=== PATIENT | female | born 1935 | race Caucasian/White ===

== ENCOUNTER 2017-06-18 20:50 | Emergency (ER) | payer OTHER ==
[2017-06-18 21:53] LABS: ADD MAN DIFF? NO
[2017-06-18 22:00] LABS: WHITE BLOOD COUNT 6.7 10^3/ul (4.8-10.8)
[2017-06-18 22:00] LABS: BASOPHILS % 0.6 % (0.0-2.0); EOSINOPHILS # 0.1 10^3/ul (0.0-0.5); EOSINOPHILS % 0.9 % (0.0-7.0); HEMATOCRIT 35.7 % (37.0-47.0); HEMOGLOBIN 12.2 g/dl (12.0-16.0); LYMPHOCYTES # 1.5 10^3/ul (0.8-2.9); LYMPHOCYTES % 21.9 % (15.0-51.0); MEAN CORPUSCULAR HEMOGLOBIN 27.6 pg (29.0-33.0); MEAN CORPUSCULAR HGB CONC 34.2 g/dl (32.0-37.0); MEAN CORPUSCULAR VOLUME 80.8 fl (82.0-101.0); MEAN PLATELET VOLUME 10.4 fl (7.4-10.4); MONOCYTE # 0.7 10^3/ul (0.3-0.9); MONOCYTES % 9.9 % (0.0-11.0); NEUTROPHIL # 4.5 10^3/ul (1.6-7.5); NEUTROPHILS % 66.6 % (39.0-77.0); PLATELET COUNT 247 10^3/UL (140-415); RED BLOOD COUNT 4.42 10^6/ul (4.20-5.40); RED CELL DISTRIBUTION WIDTH 13.5 % (11.5-14.5)
[2017-06-18 22:20] LABS: ALANINE AMINOTRANSFERASE 32 IU/L (13-69); ALBUMIN 2.9 g/dl (3.3-4.9); ALBUMIN/GLOBULIN RATIO 1.07; ALKALINE PHOSPHATASE 150 IU/L (42-121); ANION GAP 17 (8-16); ASPARTATE AMINO TRANSFERASE 30 IU/L (15-46); BILIRUBIN,INDIRECT 0.3 mg/dl (0-1.1); BILIRUBIN,TOTAL 0.3 mg/dl (0.2-1.3); BLOOD UREA NITROGEN 35 mg/dl (7-20); CALCIUM 7.9 mg/dl (8.4-10.2); CARBON DIOXIDE 17 mmol/L (21-31); CHLORIDE 106 mmol/L (97-110); CREATININE 0.91 mg/dl (0.44-1.00); GLUCOSE 318 mg/dl (70-220); LIPASE 297 U/L (23-300); POTASSIUM 4.1 mmol/L (3.5-5.1); SODIUM 136 mmol/L (135-144); TOTAL PROTEIN 5.6 g/dl (6.1-8.1)
[2017-06-18 22:31] LABS: TROPONIN-I < 0.012 ng/ml (0.00-0.12)
[2017-06-18] MEDS: SOD CHLORIDE 0.9% 1,000 ML IV (22:55)
[2017-06-18] MEDS: LORAZEPAM 0.5 MG TAB PO (23:13)
[2017-06-19 01:44] LABS: TROPONIN-I < 0.012 ng/ml (0.00-0.12)
== END 2017-06-19 09:18 | disposition home or self-care (01) ==
LOC: E/R 06-19 09:18
DX: R07.9 Chest pain, unspecified (principal); R06.02 Shortness of breath; F41.9 Anxiety disorder, unspecified; I10 Essential (primary) hypertension; E11.9 Type 2 diabetes mellitus without complications; Z79.4 Long term (current) use of insulin; Z79.82 Long term (current) use of aspirin
CPT/HCPCS: 36415; 71045; 80053; 83690; 84484; 85025; 93005; 99285-25

== ENCOUNTER → 2017-10-10 | Emergency (ER) | payer OTHER ==
[2017-10-10 20:22] LABS: ADD MAN DIFF? NO
[2017-10-10 20:24] LABS: BASOPHILS % 0.6 % (0.0-2.0); EOSINOPHILS # 0.1 10^3/ul (0.0-0.5); EOSINOPHILS % 2.2 % (0.0-7.0); HEMATOCRIT 37.8 % (37.0-47.0); HEMOGLOBIN 12.7 g/dl (12.0-16.0); LYMPHOCYTES # 1.4 10^3/ul (0.8-2.9); LYMPHOCYTES % 21.8 % (15.0-51.0); MEAN CORPUSCULAR HEMOGLOBIN 26.9 pg (29.0-33.0); MEAN CORPUSCULAR HGB CONC 33.6 g/dl (32.0-37.0); MEAN CORPUSCULAR VOLUME 80.1 fl (82.0-101.0); MEAN PLATELET VOLUME 9.7 fl (7.4-10.4); MONOCYTE # 0.7 10^3/ul (0.3-0.9); NEUTROPHIL # 4.2 10^3/ul (1.6-7.5); NEUTROPHILS % 64.1 % (39.0-77.0); PLATELET COUNT 260 10^3/UL (140-415); RED BLOOD COUNT 4.72 10^6/ul (4.20-5.40); RED CELL DISTRIBUTION WIDTH 13.2 % (11.5-14.5)
[2017-10-10 20:24] LABS: WHITE BLOOD COUNT 6.5 10^3/ul (4.8-10.8)
[2017-10-10 20:33] LABS: ANION GAP 16 (8-16); BLOOD UREA NITROGEN 32 mg/dl (7-20); CALCIUM 9.4 mg/dl (8.4-10.2); CARBON DIOXIDE 20 mmol/L (21-31); CHLORIDE 103 mmol/L (97-110); CREATININE 1.46 mg/dl (0.44-1.00); GLUCOSE 227 mg/dl (70-220); SODIUM 134 mmol/L (135-144)
[2017-10-10 20:49] LABS: B-TYPE NATRIURETIC PEPTIDE 153 PG/ML (0-450); TROPONIN-I < 0.010 ng/ml (0.000-0.120)
[2017-10-10] MEDS: LIDOCAINE/MYLANTA 40 ML BTL PO (21:02)
[2017-10-10] MEDS: SOD CHLORIDE 0.9% 500 ML IV (23:32)
[2017-10-11] MEDS: FAMOTIDINE 20 MG TAB PO (00:29)
== END | disposition home or self-care (01) ==
LOC: E/R 19:11
DX: K21.9 Gastro-esophageal reflux disease without esophagitis (principal); N28.9 Disorder of kidney and ureter, unspecified; E11.65 Type 2 diabetes mellitus with hyperglycemia; I10 Essential (primary) hypertension; Z79.4 Long term (current) use of insulin; Z79.82 Long term (current) use of aspirin
CPT/HCPCS: 36415; 71045; 80048; 83880; 84484; 85025; 93005; 99285-25

== ENCOUNTER 2017-12-16 10:17 | Emergency (ER) | payer OTHER ==
[2017-12-16] MEDS: LORAZEPAM 2 MG INJ IV (10:33)
[2017-12-16] MEDS: SOD CHLORIDE 0.9% 500 ML IV (10:33)
[2017-12-16 10:39] LABS: ADD MAN DIFF? NO
[2017-12-16 10:40] LABS: BASOPHIL # 0.1 10^3/ul (0.0-0.1); BASOPHILS % 0.6 % (0.0-2.0); EOSINOPHILS # 0.1 10^3/ul (0.0-0.5); EOSINOPHILS % 1.5 % (0.0-7.0); HEMATOCRIT 36.7 % (37.0-47.0); HEMOGLOBIN 12.1 g/dl (12.0-16.0); LYMPHOCYTES # 3.4 10^3/ul (0.8-2.9); LYMPHOCYTES % 37.5 % (15.0-51.0); MEAN CORPUSCULAR HEMOGLOBIN 26.4 pg (29.0-33.0); MEAN CORPUSCULAR VOLUME 80.1 fl (82.0-101.0); MEAN PLATELET VOLUME 9.5 fl (7.4-10.4); MONOCYTE # 0.8 10^3/ul (0.3-0.9); MONOCYTES % 8.4 % (0.0-11.0); NEUTROPHIL # 4.6 10^3/ul (1.6-7.5); NEUTROPHILS % 51.8 % (39.0-77.0); PLATELET COUNT 290 10^3/UL (140-415); RED BLOOD COUNT 4.58 10^6/ul (4.20-5.40); RED CELL DISTRIBUTION WIDTH 13.9 % (11.5-14.5)
[2017-12-16 11:02] LABS: ALANINE AMINOTRANSFERASE 20 IU/L (13-69); ALBUMIN 3.7 g/dl (3.3-4.9); ALBUMIN/GLOBULIN RATIO 1.02; ALKALINE PHOSPHATASE 97 IU/L (42-121); ANION GAP 17 (8-16); ASPARTATE AMINO TRANSFERASE 28 IU/L (15-46); BILIRUBIN,INDIRECT 0.7 mg/dl (0-1.1); BILIRUBIN,TOTAL 0.7 mg/dl (0.2-1.3); BLOOD UREA NITROGEN 35 mg/dl (7-20); CALCIUM 9.5 mg/dl (8.4-10.2); CARBON DIOXIDE 19 mmol/L (21-31); CHLORIDE 104 mmol/L (97-110); CREATININE 1.58 mg/dl (0.44-1.00); GLUCOSE 188 mg/dl (70-220); LIPASE 84 U/L (23-300); POTASSIUM 4.1 mmol/L (3.5-5.1); SODIUM 136 mmol/L (135-144); TOTAL PROTEIN 7.3 g/dl (6.1-8.1)
[2017-12-16 11:13] LABS: TROPONIN-I < 0.012 ng/ml (0.000-0.120)
== END 2017-12-16 13:47 | disposition home or self-care (01) ==
LOC: E/R 10:17
DX: F41.9 Anxiety disorder, unspecified (principal); I10 Essential (primary) hypertension; E11.9 Type 2 diabetes mellitus without complications; E03.9 Hypothyroidism, unspecified; Z79.4 Long term (current) use of insulin; Z86.73 Personal history of transient ischemic attack (TIA), and cerebral infarction without residual deficits
CPT/HCPCS: 36415; 71045; 80053; 83690; 84484; 85025; 93005; 96374; 99285-25

== ENCOUNTER 2018-02-25 16:39 | Observation (INO) | payer OTHER ==
[2018-02-25] MEDS: ONDANSETRON 4 MG INJ IV (17:16)
[2018-02-25] MEDS: morphine 4 MG/ML VIAL IV (17:16)
[2018-02-25] MEDS: LABETALOL HCL 20MG INJ IV (17:17)
[2018-02-25] MEDS: NITROGLYCERIN 2% 1 GM OINT PKT TD (17:17)
[2018-02-25 17:24] LABS: ADD MAN DIFF? NO
[2018-02-25 17:26] LABS: WHITE BLOOD COUNT 6.8 10^3/ul (4.8-10.8)
[2018-02-25 17:26] LABS: BASOPHILS % 0.6 % (0.0-2.0); EOSINOPHILS # 0.1 10^3/ul (0.0-0.5); EOSINOPHILS % 1.8 % (0.0-7.0); HEMATOCRIT 40.5 % (37.0-47.0); HEMOGLOBIN 13.2 g/dl (12.0-16.0); LYMPHOCYTES # 2.8 10^3/ul (0.8-2.9); LYMPHOCYTES % 40.9 % (15.0-51.0); MEAN CORPUSCULAR HEMOGLOBIN 26.3 pg (29.0-33.0); MEAN CORPUSCULAR HGB CONC 32.6 g/dl (32.0-37.0); MEAN CORPUSCULAR VOLUME 80.7 fl (82.0-101.0); MEAN PLATELET VOLUME 9.4 fl (7.4-10.4); MONOCYTE # 0.7 10^3/ul (0.3-0.9); MONOCYTES % 9.9 % (0.0-11.0); NEUTROPHIL # 3.2 10^3/ul (1.6-7.5); NEUTROPHILS % 46.7 % (39.0-77.0); PLATELET COUNT 275 10^3/UL (140-415); RED BLOOD COUNT 5.02 10^6/ul (4.20-5.40); RED CELL DISTRIBUTION WIDTH 14.6 % (11.5-14.5)
[2018-02-25 17:49] LABS: ANION GAP 14 (5-13); BLOOD UREA NITROGEN 29 mg/dl (7-20); CALCIUM 10.2 mg/dl (8.4-10.2); CARBON DIOXIDE 23 mmol/L (21-31); CHLORIDE 105 mmol/L (97-110); CREATININE 1.21 mg/dl (0.44-1.00); GLUCOSE 99 mg/dl (70-220); POTASSIUM 3.6 mmol/L (3.5-5.1); SODIUM 142 mmol/L (135-144)
[2018-02-25] MEDS ORDERED: ONDANSETRON 4 MG INJ IV (18:00)
[2018-02-25] MEDS ORDERED: ACETAMINOPHEN 325 MG TAB PO (18:00)
[2018-02-25 18:01] LABS: TROPONIN-I < 0.012 ng/ml (0.000-0.120)
[2018-02-25] MEDS: ISOSORBIDE DINITRATE 20 MG TAB PO (20:32)
[2018-02-25] MEDS: NITROGLYCERIN (SL) 0.4 MG TAB SL (21:49)
[2018-02-25] MEDS ORDERED: GLUCOSE GEL 15 GRAM TUBE BUCCAL (23:00)
[2018-02-25] MEDS ORDERED: GLUCAGON 1 MG INJ IM (23:00)
[2018-02-25] MEDS ORDERED: DEXTROSE 50% 50 ML SYRINGE IV ×2 (23:00)
[2018-02-25] MEDS ORDERED: GLUCOSE GEL 15 GRAM TUBE PO ×2 (23:00)
[2018-02-25] MEDS: morphine 2 MG INJ IV (23:42)
[2018-02-25 23:59] LABS: CREATINE KINASE 46 IU/L (23-200)
[2018-02-26 00:13] LABS: CK INDEX 2.6; CK-MB 1.19 ng/ml (0.0-2.4); TROPONIN-I < 0.012 ng/ml (0.000-0.120)
[2018-02-26] MEDS: DEXTROSE 5%-0.45% NACL 1,000 ML IV ×2 (00:27→17:07)
[2018-02-26] MEDS: morphine 2 MG INJ IV ×2 (05:37→11:20)
[2018-02-26 06:41] LABS: CHOLESTEROL 144 mg/dl (100-200)
[2018-02-26 06:41] LABS: CHOL/HDL RATIO 3.3 RATIO; HDL CHOLESTEROL 43 mg/dl (33-92); LDL CHOLESTEROL,CALCULATED 80 mg/dl; TRIGLYCERIDES 107 mg/dl (0-149)
[2018-02-26 06:47] LABS: CK-MB 0.88 ng/ml (0.0-2.4); TROPONIN-I < 0.012 ng/ml (0.000-0.120)
[2018-02-26 06:52] LABS: CK INDEX 2.4; CREATINE KINASE 37 IU/L (23-200)
[2018-02-26] MEDS: INSULIN ASPART [NOVOLOG] 3 ML PEN SC ×7 (07:55→20:50)
[2018-02-26] MEDS: FENOFIBRATE 145 MG TAB PO (08:32)
[2018-02-26] MEDS: ASPIRIN (EC) 325 MG TAB PO (08:33)
[2018-02-26] MEDS: CHOLECALCIFEROL 2,000 UNIT CAP PO (08:33)
[2018-02-26] MEDS: ISOSORBIDE DINITRATE 20 MG TAB PO ×3 (08:33→20:42)
[2018-02-26] MEDS: AMLODIPINE 5 MG TAB PO (08:33)
[2018-02-26] MEDS: ENOXAPARIN 30 MG/0.3 ML SYG SC (08:38)
[2018-02-26] MEDS ORDERED: FENOFIBRATE MICRONIZED 130 MG PO (09:00)
[2018-02-26] MEDS ORDERED: NON-FORMULARY/PATIENT OWN MED (Cholecalciferol (Vitamin D3) (Vitamin D-3) 2,000 UNIT) PO (09:00)
[2018-02-26] MEDS: hydrALAzine 20 MG INJ IV (11:16)
[2018-02-26] MEDS: ONDANSETRON 4 MG INJ IV ×2 (12:08→17:05)
[2018-02-26] MEDS: NITROGLYCERIN (SL) 0.4 MG TAB SL (12:28)
[2018-02-26] MEDS: IBUPROFEN 600 MG TAB PO (18:41)
[2018-02-26] MEDS: GABAPENTIN 100 MG CAP PO (20:41)
[2018-02-26] MEDS: INSULIN GLARGINE [LANTus] (100 UNITS/ML) SYG SC (20:51)
[2018-02-26] MEDS: ACETAMINOPHEN 325 MG TAB PO (20:58)
[2018-02-27] MEDS: INSULIN ASPART [NOVOLOG] 3 ML PEN SC ×7 (07:46→20:50)
[2018-02-27] MEDS: AMLODIPINE 5 MG TAB PO (08:24)
[2018-02-27] MEDS: FENOFIBRATE 145 MG TAB PO (08:24)
[2018-02-27] MEDS: CHOLECALCIFEROL 2,000 UNIT CAP PO (08:24)
[2018-02-27] MEDS: ASPIRIN (EC) 325 MG TAB PO (08:25)
[2018-02-27] MEDS: ISOSORBIDE DINITRATE 20 MG TAB PO ×3 (08:25→20:44)
[2018-02-27] MEDS: ENOXAPARIN 30 MG/0.3 ML SYG SC (08:31)
[2018-02-27] MEDS: REGADENOSON 0.4 MG/5 ML SYG (13:10)
[2018-02-27] MEDS: hydrALAzine 20 MG INJ IV (13:40)
[2018-02-27] MEDS: DEXTROSE 5%-0.45% NACL 1,000 ML IV (14:00)
[2018-02-27] MEDS: GABAPENTIN 100 MG CAP PO (20:44)
[2018-02-27] MEDS: INSULIN GLARGINE [LANTus] (100 UNITS/ML) SYG SC (20:47)
[2018-02-28] MEDS: DEXTROSE 5%-0.45% NACL 1,000 ML IV (02:00)
[2018-02-28] MEDS: INSULIN ASPART [NOVOLOG] 3 ML PEN SC ×4 (07:55→12:10)
[2018-02-28] MEDS: CHOLECALCIFEROL 2,000 UNIT CAP PO (08:44)
[2018-02-28] MEDS: ASPIRIN (EC) 325 MG TAB PO (08:44)
[2018-02-28] MEDS: ISOSORBIDE DINITRATE 20 MG TAB PO ×2 (08:45→12:07)
[2018-02-28] MEDS: AMLODIPINE 5 MG TAB PO (08:45)
[2018-02-28] MEDS: FENOFIBRATE 145 MG TAB PO (08:45)
[2018-02-28] MEDS: ENOXAPARIN 30 MG/0.3 ML SYG SC (08:49)
== END 2018-02-28 15:30 | disposition home or self-care (01) ==
LOC: TEL 02-28 08:15 → E/R 16:39 → TEL 17:38
DX: R07.9 Chest pain, unspecified (principal); I10 Essential (primary) hypertension; E11.9 Type 2 diabetes mellitus without complications; E78.00 Pure hypercholesterolemia, unspecified; N28.9 Disorder of kidney and ureter, unspecified; E03.9 Hypothyroidism, unspecified; R94.31 Abnormal electrocardiogram [ECG] [EKG]; Z86.73 Personal history of transient ischemic attack (TIA), and cerebral infarction without residual deficits; Z79.4 Long term (current) use of insulin
CPT/HCPCS: 36415; 71045; 78451; 78452; 80048; 80061; 82550; 82553; 82962; 84443; 84484; 85025; 93005; 93017; 93306; 93970; 96374; 96375; 99285-25; G0378

== ENCOUNTER 2018-08-09 15:44 | Emergency (ER) | payer OTHER ==
[2018-08-09 17:00] LABS: ADD MAN DIFF? NO
[2018-08-09 17:04] LABS: BASOPHIL # 0.1 10^3/ul (0.0-0.1); BASOPHILS % 0.7 % (0.0-2.0); EOSINOPHILS # 0.2 10^3/ul (0.0-0.5); EOSINOPHILS % 1.5 % (0.0-7.0); HEMOGLOBIN 13.6 g/dl (12.0-16.0); LYMPHOCYTES % 31.3 % (15.0-51.0); MEAN CORPUSCULAR HEMOGLOBIN 27.3 pg (29.0-33.0); MEAN CORPUSCULAR HGB CONC 33.2 g/dl (32.0-37.0); MEAN CORPUSCULAR VOLUME 82.2 fl (82.0-101.0); MEAN PLATELET VOLUME 9.5 fl (7.4-10.4); MONOCYTE # 0.8 10^3/ul (0.3-0.9); MONOCYTES % 8.5 % (0.0-11.0); NEUTROPHIL # 5.6 10^3/ul (1.6-7.5); NEUTROPHILS % 57.6 % (39.0-77.0); PLATELET COUNT 307 10^3/UL (140-415); RED BLOOD COUNT 4.99 10^6/ul (4.20-5.40); RED CELL DISTRIBUTION WIDTH 14.3 % (11.5-14.5)
[2018-08-09 17:04] LABS: WHITE BLOOD COUNT 9.7 10^3/ul (4.8-10.8)
[2018-08-09] MEDS: ASPIRIN 81 MG TAB PO (17:22)
[2018-08-09] MEDS: LORAZEPAM 0.5 MG TAB PO (17:22)
[2018-08-09 17:26] LABS: ANION GAP 11 (5-13); BLOOD UREA NITROGEN 31 mg/dl (7-20); CALCIUM 10.3 mg/dl (8.4-10.2); CARBON DIOXIDE 21 mmol/L (21-31); CHLORIDE 110 mmol/L (97-110); GLUCOSE 102 mg/dl (70-220); POTASSIUM 3.9 mmol/L (3.5-5.1); SODIUM 142 mmol/L (135-144)
[2018-08-09 17:37] LABS: TROPONIN-I < 0.012 ng/ml (0.000-0.120)
[2018-08-09] MEDS: SOD CHLORIDE 0.9% 500 ML IV (19:36)
== END 2018-08-09 20:47 | disposition home or self-care (01) ==
LOC: E/R 15:44
DX: I12.9 Hypertensive chronic kidney disease with stage 1 through stage 4 chronic kidney disease, or unspecified chronic kidney disease (principal); N18.9 Chronic kidney disease, unspecified; F41.9 Anxiety disorder, unspecified; E11.22 Type 2 diabetes mellitus with diabetic chronic kidney disease; Z79.4 Long term (current) use of insulin; Z86.73 Personal history of transient ischemic attack (TIA), and cerebral infarction without residual deficits; Z95.0 Presence of cardiac pacemaker
CPT/HCPCS: 36415; 71045; 80048; 84484; 85025; 93005; 96360; 99285-25